=== PATIENT | female | born 1960 | race Caucasian/White ===

== ENCOUNTER 2024-10-10 19:16 | Inpatient (IN) | payer OTHER, SELFPAY ==
[2024-10-10] VITALS (20 sets, daily range): BP systolic 60–115; BP diastolic 40–75
[2024-10-10] MEDS: LR 1000 IV ×3 (16:40→21:56)
[2024-10-10 16:59] LABS: % Basophils 0.3 % (0-2); % Eosinophils 0.5 % (0-6); % Immature Granulocytes 0.2 % (0-0.5); % Lymphocytes 9.8 % (20.5-51.1); % Monocytes 4.2 % (1.7-9.3); Absolute Lymphocytes 0.6 10^3/uL (1.2-3.4); Absolute Monocytes 0.3 10^3/uL (0.1-0.6); Hematocrit 21.9 % (37.0-47.0); Mean Corpuscular Hgb 30.7 pg (27.0-31.0); Mean Corpuscular Volume 96.1 fL (81.0-99.0); Mean Platelet Volume 10.3 fL (7.4-10.4); Nucleated Red Blood Cells % 0 %; Platelet Count 165 10^3/uL (130-400); Red Blood Cell Count 2.28 10^6/uL (4.20-5.40); White Blood Cell Count 5.9 10^3/uL (4.8-10.8)
[2024-10-10 17:16] LABS: INR 1.08; PT 14.3 Sec (11.4-14.6)
[2024-10-10 17:17] LABS: APTT 25.1 Sec (23.4-35.0)
[2024-10-10 17:28] LABS: ALT (SGPT) 75 U/L (0-35); AST (SGOT) 60 U/L (14-36); Albumin 4.3 g/dl (3.5-5.0); Alkaline Phosphatase 62 U/L (38-126); Blood Urea Nitrogen 36 mg/dl (7-17); Calcium 9.3 mg/dl (8.4-10.2); Carbon Dioxide 13 mmol/L (22-30); Chloride 113 mmol/L (98-107); Estimated Creatinine Clearance 28 ml/min; Glucose 92 mg/dl (70-99); Potassium 3.5 mmol/L (3.5-5.1); Sodium 140 mmol/L (135-145); Total Bilirubin 0.4 mg/dl (0.2-1.3); Total Protein 6.5 g/dl (6.3-8.2); eGFR 42.27
--- NOTE | 2024-10-10 17:36 | ED.GENMED ---
History of Present Illness
General
Chief Complaint: Abnormal Lab Value
Time Seen by Provider: 10/10/24 15:45
History of Present Illness
History of Present Illness:
63-year-old female presents emergency ferment due to shortness of breath dizziness, recent hemoglobin 6.2. Patient is also diarrhea for the past 3 days.
Past History
Past History
ED Past Medical History: Arrthythmia (SVT, paroxysmal atrial fibrillation), CAD, CHF (Diastolic heart failure), COPD, GERD, HTN, Hypercholesterolemia, NC (August 2010), Other and Other (Still's disease/scleroderma, Pancreatitis, Esophageal
Ulcerations)
ED Past Surgical History: Cardiac (PTCA with stent times 08/2010) and Other
Social History
Tobacco: Former smoker
Alcohol: Occasional
Drug: None
Personal: Other (Seperated)
Living: with roommate
Employment: Employed
Family History
Family History: Hypertension
Phy Exam
Physical Exam
Physical Exam:
Physical Exam
General: Hypotensive, pale l
Neck: supple. no meningeal signs. normal posterior pharynx
Heart: s1/s2 regular rate and rhythm, no murmur. equal radial
pulses.
HEENT: Pupils equal round reactive to light, EOMI
Lungs: no acute respiratory distress. clear bilaterally
, Guaiac positive brown stool
Abdomen: normal bowel sounds. not tender. no CVAT
Neuro: alert and oriented. no focal neurological deficits cranial nerves II through XII intact
Skin: no rash
Psychiatric: well kept. interactive and cooperative
Extremities: no edema. no calf tenderness. negative homans. good distal pulses
Course
Orders/Labs/Results
Orders:
Orders
10/10/24 15:54
Cardiac Monitoring- Treatment ONCE
IV Insert/Care/Rem.- Treatment PRN
10/10/24 16:21
Lactated Ringers [Lr] 1,000 ml IV BOLUS
10/10/24 16:43
Complete Blood Count/With Diff Urgent
Comprehensive Metabolic Panel Urgent
PTT Urgent
Prothrombin Time Urgent
10/10/24 17:21
Type+Screen Urgent
BBK Wristband Number:
10/10/24 17:35
Blood Bank Products [* Blood Bank Products] Urgent
Blood Bank Products: *Packed RBC Leuko(PRBC's)
Quantity: 1
Transfuse Today: Yes
Reason: Anemia
Pantoprazole [Protonix IV] 80 mg IV NOW STA
Abnormal Lab Results
10/10/24
16:43
RBC 2.28 L 10^6/uL
(4.20-5.40)
Hgb 7.0 L g/dL
(12.0-16.0)
Hct 21.9 L %
(37.0-47.0)
MCHC 32.0 L g/dL
(33.0-37.0)
RDW 15.0 H %
(11.5-14.5)
Absolute Lymphs (auto) 0.6 L 10^3/uL
(1.2-3.4)
Neutrophils % 85.0 H %
(42.2-75.2)
Lymphocytes % 9.8 L %
(20.5-51.1)
Chloride 113 H mmol/L
(98-107)
Carbon Dioxide 13 L* mmol/L
(22-30)
BUN 36 H mg/dl
(7-17)
Creatinine 1.4 H mg/dL
(0.6-1.0)
AST 60 H U/L
(14-36)
ALT 75 H U/L
(0-35)
10/10/24 16:43
10/10/24 16:43
Vital Signs
Initial and Last Documented VS:
Initial Vital Signs
Temp Pulse Resp BP Pulse Ox
97.4 F 86 22 86/67 90
10/10/24 15:36 10/10/24 15:36 10/10/24 15:36 10/10/24 15:36 10/10/24 15:36
Last Documented Vital Signs
Temp Pulse Resp BP Pulse Ox
97.4 F 75 15 91/75 94
10/10/24 15:36 10/10/24 17:30 10/10/24 17:30 10/10/24 17:30 10/10/24 15:36
MDM/Problems Addressed
Differential Diagnosis Includes:
GI bleed, metabolic acidosis, anemia
MDM/Problems Addressed:
64-year-old female with guaiac positive dark stool, but on iron. Hemoglobin 7.0, hypotension. IV fluids given. Metabolic acidosis of unclear etiology. Protonix ordered, 1 unit packed red blood cells ordered.
Chronic conditions affecting care: COPD
Acute Exacerbation and/or Progression of Chronic Illness: COPD
*Pulse Oximetry
Patient hypoxic: no
*Nursery Rn Interpretation
Rate: normal
Interpretation: normal
Heart Rate: 75
Rhythm: sinus
*Critical Care Note
Total Time (30-74mins, 75-104mins- exclusive of procedures): 35
comment:
Critical care statement: A total of 35 minutes of critical care time was provided for this patient. This includes management of unstable vital signs, evaluation of the patient at bedside, reviewing the patient's pertinent medical records, discussion
with consultants, review of old EKGs and review of pertinent medical records. This time with separate from time utilized to perform the aforementioned documented procedures
Data Reviewed
Review of Other/Old Records Reveals: Labs
Source: records (Recent hemoglobin 6.2)
Patient Management
Social determinants of health affecting care: Living situation and Strong social support
Discussion with other providers: Hospitalist
Escalation/DeEscalation of care consider admission/obs:
Admission indicated
ED Attending Note
-
Portions of this chart may have been created with voice recognition software.� Occasional wrong word or��sound alike� substitutions may have occurred due to the inherent limitations of voice recognition software.
Discharge Plan
Departure
Patient Disposition: Admit
Date of Disposition: 10/10/24
Time of Disposition: 17:38
Admit to: IMU
Presentation/result/management discussed w/ accepting MD/DO: Hospitalist
Patient with high blood pressure during this ER visit?: No
Condition: Fair
Discharge Problem:
Anemia, Metabolic acidosis, Acute renal failure (ARF)
Prescriptions:
No Action
albuterol sulfate 1 PUFF HFA aerosol inhaler
1 puff inhalation PRN PRN (Reason: SOB)
Patient Comments:
PT ran out of medication
clonazepam 0.5 MG tablet
1 mg PO BID
mirtazapine 15 MG tablet
45 mg PO HS
diphenhydramine HCl 25 MG strip
50 mg PO PRN PRN (Reason: allergies)
losartan 50 MG tablet
50 mg PO DAILY
mycophenolate mofetil 500 MG tablet
1,000 mg PO BID
amlodipine 10 MG tablet
50 mg PO DAILY
ferrous sulfate [iron] 325 MG tablet
325 mg PO BID
hydrochlorothiazide 12.5 MG capsule
12.5 mg PO DAILY
zolpidem 5 MG tablet
5 mg PO HS
buspirone [BuSpar] 15 MG tablet
10 mg PO BID
budesonide-formoterol [Symbicort] 1 PUFF HFA aerosol inhaler
2 puff inhalation R BID
atorvastatin 10 MG tablet
10 mg PO DAILY
aspirin [Aspir-Low] 81 MG tablet,delayed release (DR/EC)
81 mg PO DAILY
dicyclomine 10 MG capsule
10 mg PO QIDPRN PRN (Reason: abdominal pain/spasm) Qty: 20 0RF
Referrals:
NONE,* [Family Provider] -
Interventions
Interventions:
*Risk Screen - Suicide Last Done: 10/10/24 15:36
*General Assessment Last Done: 10/10/24 15:36
*Neglect/Abuse Screening Last Done: 10/10/24 15:36
*ED- Fall Risk Assessment Last Done: 10/10/24 15:36
*ED COVID-19 Vaccine History Last Done: 10/10/24 15:36
Discharge Date and Time
Print Language: LAO
--- NOTE | 2024-10-10 18:17 | HPS.HSE ---
Addendum entered and electronically signed by Pelon Long MD 10/10/24 20:35:
I saw and examined the patient.
The MUSEUM ATTENDANT or PA's note was reviewed and I agree with the note.
Comment:
see my updated note
Original Note:
Family Physician
-
Family Physician: * NONE
Chief Complaint
-
Lightheadedness, shortness of breath, diarrhea x 3 days, fatigue x 2 months
History of Present Illness
64-year-old female complaining of shortness of breath, dizziness and diarrhea over the past 3 days and fatigue x 2 months. She reports watery black diarrhea for the past 3 days multiple times a day for which she has been taking Imodium for daily.
She recently finished Bactrim DS 2 weeks ago for a urinary tract infection. She denies history of C. difficile she reports a sacral ulcer for the past 3 weeks to her buttocks that is painful. She reports prior to 2 months ago she was going to the
gym daily and lifting weights. She states she has had anemia dating back to her 40s for which she had a blood transfusion but never had a hematological evaluation. She scheduled her first ANTONIO valve on 10/12/[address] Gary. She has
been taking oral iron once a day and B12 on her own. She had recent hemoglobin she was told of 6.2. In the ER she had guaiac positive dark stool on ER exam with a hemoglobin of 7 and was hypotensive as low as 62 over 50s. She received 2 L bolus
of lactated Ringer's while waiting for 1 unit of PRBCs to be transfused. She is on oral aspirin 81 mg daily. Her blood pressure is still hypotensive but improving to
91/75.
She has past medical history of COPD/former smoker, sinus tachycardia 2010,Sinus tachycardia 2010 ,Chronic RBBB, bifascicular block CAD/UT status post PTCA with stent August 2010- PTCA of the small third diagonal and small very apical LAD., chronic
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
Medical History
Past Medical History
Past Medical History: Reports Other
Additional Past Medical History:
COPD/former smoker
Sinus tachycardia 2010
Chronic RBBB, bifascicular block
CAD/UT status post PTCA with stent August 2010- PTCA of the small third diagonal and small very apical LAD.
chronic diastolic heart failure/Takotsubo cardiomyopathy August 2010
GERD/esophageal ulcerations
HTN
HLD
stills disease/scleroderma on CellCept
pancreatitis
chronic anemia baseline 10 since age 40s history of 1 blood transfusion
diverticulosis on colonoscopy 2018, hemorrhoids
cachexia
Past Surgical History: Reports Other
Additional Past Surgical History:
PTCA with stent August 2010- PTCA of the small third diagonal and small very apical LAD.
Colonoscopy 2018
Social History
Tobacco: Former Smoker (45 years 1/4 pack a day stopped August 2016)
Alcohol: None
Drug: None
Family History
Family History: Not pertinent
Allergies / Home Medications
Allergies reflects when Allergies were last updated in [facility].
Home Medications with original date entered in [facility]
Allergy/Medication List:
Allergies
Allergy/AdvReac Type Severity Reaction Status Date / Time
WYATT Inhibitors Allergy cough Verified 10/10/24 15:35
[Wyatt Inhibitors]
hydroxyzine HCl [From Atarax] Allergy hallucinati Verified 10/10/24 15:35
ons
levofloxacin [From Levaquin] Allergy Itching Verified 10/10/24 15:35
lisinopril Allergy cough Verified 10/10/24 15:35
fresh pineapples,cherries & Allergy itchy Uncoded 10/10/24 15:35
peaches mouth &
throat and
swelling
monitor leads Allergy contact Uncoded 10/10/24 15:35
dermatitis
Home Medications
amlodipine 10 mg tablet 10 mg PO DAILY 09/24/14
ferrous sulfate 325 mg (65 mg iron) tablet (iron) 325 mg PO DAILY 09/24/14
hydrochlorothiazide 12.5 mg capsule 12.5 mg PO DAILY 09/24/14
losartan 50 mg tablet 50 mg PO DAILY 09/24/14
mycophenolate mofetil 500 mg tablet 1,000 mg PO BID 09/24/14
zolpidem 5 mg tablet 5 mg PO HS 09/24/14
atorvastatin 10 mg tablet 10 mg PO QPM 08/07/17
ascorbic acid (vitamin C) 500 mg tablet (Vitamin C) 500 mg PO DAILY 10/10/24
aspirin 81 mg tablet,delayed release 81 mg PO DAILY 10/10/24
bismuth subsalicylate 262 mg/15 mL oral suspension (Pepto-Bismol) 262 mg PO DAILYPRN PRN diarrhea 10/10/24
buspirone 15 mg tablet 15 mg PO BID 10/10/24
cholecalciferol (vitamin D3) 25 mcg (1,000 unit) tablet (Vitamin D3) 25 mcg PO DAILY 10/10/24
clonazepam 1 mg tablet 1 mg PO BID 10/10/24
cyanocobalamin (vitamin B-12) 1,000 mcg tablet 1,000 mcg PO DAILY 10/10/24
estradiol 0.01% (0.1 mg/gram) vaginal cream (Estrace) 1 appful vaginal TUFR 10/10/24
fluticasone furoate 100 mcg-vilanterol 25 mcg/dose inhalation powder (Breo Ellipta) 1 inh inhalation R DAILY 10/10/24
loperamide 2 mg tablet 2 mg PO BIDPRN PRN diarrhea 10/10/24
mirtazapine 30 mg tablet 30 mg PO HS 10/10/24
omeprazole 20 mg tablet,delayed release 20 mg PO DAILY 10/10/24
Review of Systems
-
History Source: Patient
A 12 point ROS was completed and negative except as noted: Yes
Constitutional: Reports Fatigue; Denies Fever or Chills
EENT: Denies Sore Throat or Runny Nose
Respiratory: Reports Trouble Breathing; Denies Cough
Cardiac: Denies Chest Pain, Diaphoresis, Palpitations or Syncope
Abdomen/GI: Reports Diarrhea (Watery dark brown x 3 days); Denies Abdominal Pain, Nausea, Vomiting or Constipated
: Denies Dysuria, Frequency, Flank Pain, Incontinence or Difficulty Voiding
Musculoskeletal: Denies Joint Pain or Edema
Skin: Denies Itching or Rash
Neurological: Reports Dizzy and Weakness (Generalized); Denies Headache
Endocrine: Reports No Symptoms
Hematologic/Lymphatic: Reports No Symptoms
Psych: Reports Calm
Physical Exam
Vital Signs
Vital Signs
Temp Pulse Resp BP Pulse Ox
97.4 F 75 15 91/75 94
10/10/24 15:36 10/10/24 17:30 10/10/24 17:30 10/10/24 17:30 10/10/24 15:36
Physical Exam
General: Conversant, Chills and Cachectic; No Pain or Fever
HEENT: NormoCephalic, Anicteric, PERRLA, No Ptosis and Other (Dry oral mucosa)
Respiratory: Clear; No Wheezes, Rales or Rhonchi
Cardiac: S1/S2 and Regular Rhythm; No Murmur, Rub, Gallop or Peripheral Edema
Breast: Deferred by me
GI: Soft, Non Distended, Normal Bowel Sounds and No Hepatosplenomegaly
Rectal: Hem Positive (Dark brown per ER provider)
Musculoskeletal: No Clubbing, No Cyanosis and No Edema
Skin: Warm, Dry and Decubitus Ulcers (Stage II sacral decub dime size); No Rash
Neuro: AO x 3 (But poor historian), No Motor Deficits, Nonfocal/grossly intact, Cranial Nerves Intact and No Sensory Deficits; No Slurred Speech, Facial Droop, Tremors or Sedated
Psych: Calm (Gets anxious very easily)
Laboratory Results
-
10/10/24 16:43
10/10/24 16:43
Laboratory Results
PT 14.3 Sec (11.4-14.6) 10/10/24 16:43
INR 1.08 10/10/24 16:43
APTT 25.1 Sec (23.4-35.0) 10/10/24 16:43
Total Bilirubin 0.4 mg/dl (0.2-1.3) 10/10/24 16:43
AST 60 U/L (14-36) H 10/10/24 16:43
ALT 75 U/L (0-35) H 10/10/24 16:43
Alkaline Phosphatase 62 U/L (38-126) 10/10/24 16:43
Data Reviewed
-
Lab Data: Labs Reviewed by me
Impression/Plan
-
Impression/plan:
Admit to IMU
#Hypotensive shock due to blood loss anemia/hypovolemia #Immunocompromised patient history scleroderma on CellCept
#Hx HTN�benign
BP 62/50, 2 L IV LR BP 91/75
- Continue IV LR 80 cc an hour 1 L
- Patient receiving 1 unit PRBC
- Follow blood pressure
- Hold amlodipine 10 mg daily, HCTZ 12.5 mg daily, losartan 50 mg daily
- Hold CellCept
- Check 2D echo
- Consult cushion sewer
2D echo 05/22/2016: EF 55-60%, normal LVS LVSF, trace MR
#Scleroderma, stills disease
#History of mild narrowing esophagus due to stricture from scleroderma on barium swallow 01/05/
-Hold CellCept 1000 mg twice daily due to GI bleed, BROOKE
#Symptomatic blood loss anemia concern for GI bleed
#Chronic anemia�normocytic baseline 10
#Hx GERD/esophageal ulcerations
Hgb 7
Black stool guaiac positive in the ER per provider
Type and screen, blood consent obtained by ER
-Transfuse 1 unit PRBC
-Check iron, TIBC, ferritin, folate, B12
- Hold aspirin
-Continue vitamin B12 1000 mcg p.o. daily patient is to be taking ferrous sulfate 325 mg daily
- IV Protonix 80 mg given in ER
- Continue IV Protonix 40 mg daily
-Clear liquid diet
-H&H Q6
- Consult GI-Dr. Ventura aware
Colonoscopy 08/12/2018: Diverticulosis large intestine/sigmoid, hemorrhoidal skin tags
#Metabolic acidosis due to diarrheal losses
Diarrhea x 3 days
Serum carbon dioxide 13
-IV LR 2 L given in ER, continue IV LR 60 cc an hour
-Follow CMP
#BROOEK secondary to diarrheal losses/Bactrim/ blood loss anemia/GI bleed/hypotension
Creat 1.4/CrCl 28 prior baseline 0.9 on 10/02/2021
-Completed course of Bactrim 2 weeks ago for UTI
2 L LR given in ER
- Follow BMP check mag, Phos
- Check urinalysis with reflex culture
- Hold losartan 50 mg daily, HCTZ 12.5 mg daily
#Recent UTI 2 weeks ago finished Bactrim DS now with diarrhea watery-no current urinary symptoms
Watery diarrhea black x 3 days patient has been taking Imodium daily since then
-Check stool cultures, C. difficile
- Add probiotic
#Stage II sacral ulcer
- Consult wound care
#Chronic diastolic heart failure
I/O, daily weights
Patient did receive 2 L IV NSS in ER will give 1 additional liter IV NSS 60 cc an hour
- Hold HCTZ 12.5 mg daily
-Follows with [facility]
- Check 2D echo
#CAD/UT status post PTCA with stent August 2010
#Takotsubo cardiomyopathy
#Status post : Successful PTCA of the small third diagonal and small very apical LAD.
-Hold aspirin, beta-farhat, statin
#COPD-no acute exacerbation
#Former smoker
- Continue Breo Ellipta 1 inhalation daily
#Sinus tachycardia history 2010
#Chronic RBBB, bifascicular block
- HR stable at 75 bpm
- Hold aspirin 81 mg daily
- Check EKG
# HLD
Hold atorvastatin 10 mg every afternoon
#Anxiety/depression
-Continue BuSpar 15 mg p.o. twice daily,
-Continue clonazepam 1 mg p.o. twice daily hold for sedation
- Continue Remeron 30 mg at bedtime
#Insomnia
-Continue Ambien 5 mg at bedtime
#Severe protein malnutrition/cachexia BMI 16.7
- Consult dietary
Other PMH:
Pancreatitis hx
DVT prophylaxis
SCDs
Full code
--- NOTE | 2024-10-10 18:42 | W.PN.UPDATE ---
Update Note
Progress Note Update
This note serves as an addendum to the H&P by book agent AJITH Orly FERGUSON
HPI
64F Cachectic, retired REFRIGERATION MECHANIC HELPER, lives at home poor historian with scleroderma , esophageal ulcer, GERD , HX SVT, paroxysmal AF, NOT ON OAC, CAD with PTCA and stent on baby ASA [place], Diastolic CHF, HX Takotsubo CM 2010, COPD, GERD, HTN,
Hypercholesterolemia, Still's disease, Pancreatitis seen at ER:
- report Salgado and Dizziness
- reports black watery painless non mucous diarrhea for last 3 days and taking Imodium
- denied prior HX C Diff
- Recently completed PO Bactrim 2 weeks ago for UTI
- reports stage II Sacra pressure sore for last 3 weeks due less ambulation
OP abnormal labs: Hgb 6.2; Baseline Hgb 9-10 , HX chronic anemia
At ER:
Severely hypotensive
Vital Signs
Temp Pulse Resp BP Pulse Ox
97.4 F 75 15 91/75 94
10/10/24 15:36 10/10/24 17:30 10/10/24 17:30 10/10/24 17:30 10/10/24 15:36
10/10/24
16:15 10/10/24
16:17 10/10/24
17:15
Blood pressure 60/40 62/52 87/69
02/20/11
07:42 02/20/11
07:45 02/20/11
07:45
Temp 97.6 F
Pulse 104
Resp Rate 16
Blood pressure 144/99
SaO2 100
PE
Gen: Cachectic, not toxic , interactive but intense
HEENT: very dry OM
Neck: supple
Lungs: CTA
Cor: RRR S1 s2
Abdomen: soft benign
RENTAL CLERK: AAO3
MS: no edema, dry skin
Psych:alert, anxious, questionable insight
Labs
10/02/21 10/02/21 10/10/24
12:12 12:23 16:43
WBC 11.5 H 5.9
Hgb 10.9 L 7.0 L
MCV 87.0 96.1
Sodium 131 L 140
Chloride 103 113 H
Carbon Dioxide 16 L 13 L*
BUN 25 H 36 H
Creatinine 0.9 1.4 H
Estimated Creat Clear 28
Glomerular Filtr Rate > 60.0 42
eGFR 42.27
Glucose 98 92
AST 60 H
ALT 75 H
05/22/16 TTE
Normal left ventricular size, wall thickness and systolic function.
Estimated ejection fraction is 55-60%.
Thickened mitral valve leaflets.
Mitral annular calcification.
Trace mitral regurgitation.
Aortic sclerosis without stenosis.
Normal pericardium and pleura without evidence of effusion.
Compared to previous echo the LV function is normal and there is no pericardial effusion currently.
ASSESSMENT & PLAN
Acute dark watery painless non mucous diarrhea with severe hypovolemia +/_ evolving hypovolemic shock
DDX: ABX associated diarrhea, C Diff dirrhea , bacterial overgrowth, micophenolate toxicity
- Stool for Cx, Stool for C Diff
- Hold all anti HTN agents ( HCTZ, Amlodipine, Losartan)
- cont. LR IVF @ 80H
- Hold Imodium till stool bacteria Cx and stool C Diff has ruled out
- Probiotics
- Check Mycophenolate level and hold it for now
- GI consult
POS Guaiac positive dark brown stool
Associated severe anemia - acute vs subacute
Underlying ACDz of multifactorial origins ( Nutritional, malabsorption syndrome )
HX esophageal ulceration
HX GERD on OP PO PPI
- Blood consented and scanned
- agree with 1 unit of PRBC
- Clear diet for now
- IV PPI daily
- FU post transfusion Hgb and trend Hgb q6H
- check Ferritin, B12 and folate
- await GI evaluation
BROOKE suspect pre renal origin due to volume depletion
- f/u Cr in response to hemoresuscitation and fluid resuscitation
HX [place], PTCA and stented CAR on baby ASA
Hypercholesterolemia
- hold ASA for now
- stop Atorvastatin for due to severe protein calorie malnutrition
HX SVT, paroxysmal AF
- NOT ON OAC
HX Scleroderma on mycophenolate
Associated Still's disease
- Check Mycophenolate level and hold it for now
Cachectic and under weight BMI 16s
Severe protein calorie malnutrition seems multifactorial origins
Diff: Eating disorders, malabsorption syndrome, chr pancreatitis ?
New stage II sacral pressure ulcer
- Grocery Sacker consult
- Wound care consult
HX Depression and Anxiety
- denied HX Eating disorder
- c/w Buspirone
- c/w SOCIAL RESEARCH ASSISTANT Clonazepam
HX Diastolic CHF on
HX Takotsubo CM 2010
HX COPD
DVT Px: SCD
Full code
IMU
[2024-10-10 19:25] LABS: Iron 99 ug/dl (37-170); Magnesium 1.5 mg/dl (1.6-2.3); Percent Saturation 55 % (20-50); Phosphorus 3.3 mg/dl (2.5-4.5); Total Iron Binding Capacity 180 ug/dl (265-497)
[2024-10-10] MEDS: PROTONIX IV 80 MG IV (19:38)
[2024-10-10 20:38] LABS: Folate 14.8 ng/ml (2.76-20); Vitamin B12 997 pg/ml (239-931)
--- NOTE | 2024-10-10 21:00 | PTCARENOTE ---
Received pt from the Ed via stretcher, ED transportation engineer, pt transferred self from stretcher to hospital bed independently. AAOx3, no complaints of pain, bed alarm in place for reports that pt is impulsive. Tolerating RA, lungs clear, SpO2 96%. BP
stable s/p 2L IVF in the ED, PRBC currently infusing via RUE midline. +bowel sounds, pt states hx of dark colored diarrhea x3 days. Remainder of assessment as documented. Oriented to new room/unit and call meier. Pt instructed not to get OOB without
assistance, emphasized fall risk and risk of vasovagal episode given recent hypotension. Pt expressed verbal understanding. Resting comfortably in bed at this time, call meier within reach.
[2024-10-10] MEDS: KLONOPIN 1 MG PO (21:57)
[2024-10-10] MEDS: BUSPAR 15 MG PO (21:57)
[2024-10-10] MEDS: AMBIEN 5 MG PO (21:57)
[2024-10-10 23:13] LABS: Hematocrit 23.8 % (37.0-47.0); Hemoglobin 7.8 g/dL (12.0-16.0)
[2024-10-11] VITALS (24 sets, daily range): BP systolic 73–115; BP diastolic 50–80; BMI 17.9
[2024-10-11 05:35] LABS: % Basophils 0.6 % (0-2); % Eosinophils 2.6 % (0-6); % Immature Granulocytes 0.3 % (0-0.5); % Lymphocytes 22.6 % (20.5-51.1); % Monocytes 9.2 % (1.7-9.3); % Neutrophils 64.7 % (42.2-75.2); Absolute Eosinophils 0.1 10^3/uL (0-0.7); Absolute Lymphocytes 0.8 10^3/uL (1.2-3.4); Absolute Monocytes 0.3 10^3/uL (0.1-0.6); Absolute Neutrophils 2.3 10^3/uL (1.4-6.5); Hematocrit 22.1 % (37.0-47.0); Hemoglobin 7.3 g/dL (12.0-16.0); Mean Corpuscular Hgb 30.7 pg (27.0-31.0); Mean Corpuscular Volume 92.9 fL (81.0-99.0); Mean Platelet Volume 9.8 fL (7.4-10.4); Nucleated Red Blood Cells % 0 %; Platelet Count 119 10^3/uL (130-400); Red Blood Cell Count 2.38 10^6/uL (4.20-5.40); Red Cell Dist. Width 17.1 % (11.5-14.5); White Blood Cell Count 3.5 10^3/uL (4.8-10.8)
[2024-10-11 06:14] LABS: ALT (SGPT) 49 U/L (0-35); AST (SGOT) 32 U/L (14-36); Albumin 3.2 g/dl (3.5-5.0); Alkaline Phosphatase 49 U/L (38-126); Blood Urea Nitrogen 24 mg/dl (7-17); Calcium 8.9 mg/dl (8.4-10.2); Carbon Dioxide 20 mmol/L (22-30); Chloride 115 mmol/L (98-107); Estimated Creatinine Clearance 39 ml/min; Glucose 83 mg/dl (70-99); Sodium 142 mmol/L (135-145); Total Bilirubin 0.8 mg/dl (0.2-1.3); Total Protein 5.2 g/dl (6.3-8.2); eGFR > 60.00
--- NOTE | 2024-10-11 06:57 | W.PN.HOSP.TC ---
Today's Communication/Plan
-
monitor H&H, transfuse prn Hgb<7.5
clear liquid diet, IVF support (stop IVF if shortness of breath or need for oxygen supplementation develops)
daily weigth I/O
midodrine 2.5 mg TID
levophed prn MAP<65
follow stool studies
Assessment / Plan
Assessment / Plan
Physical Exam
General: no acute distress, appears comfortable at this time. Appears cachectic
HEENT: NormoCephalic, Anicteric, PERRLA, No Ptosis
Respiratory: Clear to auscultation b/l; No Wheezes, Rales or Rhonchi
Cardiac: S1/S2 and Regular Rhythm; No Murmur, Rub, Gallop or Peripheral Edema
GI: Soft, Non Distended, Normal Bowel Sounds and No Hepatosplenomegaly
Musculoskeletal: No Clubbing, No Cyanosis and No Edema
Neuro: AOx3 conversant coherent
Psych: Calm
64F HTN HLD COPD former smoker CAD stent stills dz/scleroderma on cellcept here for evaluation anemia possible GIB hx watery dark diarrhea.
#Hypotensive shock due to blood loss anemia/hypovolemia
#Immunocompromised patient history scleroderma/stills dz on CellCept
#Hx HTN�benign
#Symptomatic blood loss anemia concern for GI bleed
#Chronic anemia
#Hx GERD/esophageal ulcerations
BP improved with IVF/blood transfusion
Continue IV LR 80 cc an hour
Hold home antihypertensives amlodipine 10 mg daily, HCTZ 12.5 mg daily, losartan 50 mg daily
cont home CellCept
Check 2D echo
Midodrine 2.5 mg TID w/ holding parameters SBP>120
Levophed prn MAP<65, has not required yet
Black stool guaiac positive noted in ED
received 1PRBC hgb 7.0 with relatively good response noted 7.8
transfusion repeated 10/11/24, transfuse for goal Hgb>7.5 given concern active GI bleed
iron studies appreciated anemia of chronic disease
B12 Folate noted non-deficient
Hold aspirin for now
Continue home vitamin B12 1000 mcg p.o. daily ferrous sulfate 325 mg daily
Continue IV Protonix 40 mg daily
Clear liquid diet
GI consult appreciated, follow stool studies
#Metabolic acidosis due to diarrheal losses
significantly improved with IVF
monitor
#BROOKE secondary to diarrheal losses/Bactrim/ blood loss anemia/GI bleed/hypotension
Initial Cr 1.4 improved to 1.0
cont to monitor
#Recent UTI 2 weeks ago finished Bactrim DS now with diarrhea watery-no current urinary symptoms
Watery diarrhea black x 3 days patient has been taking Imodium daily since then
-Check stool cultures, C. difficile
-probiotic
#Stage II sacral ulcer
- Consult wound care
#Chronic diastolic heart failure
I/O, daily weights
no significant signs fluid overload noted at this time.
stable respiratory status on room air
Follows with [facility]
Check 2D echo
#CAD/LA status post PTCA with stent August 2010
#Takotsubo cardiomyopathy
#Status post : Successful PTCA of the small third diagonal and small very apical LAD.
#HLD
Hold aspirin for now,
statin on hold d/t underweight/cachexia, check lipid panel in AM
#COPD-no acute exacerbation
#Former smoker
- Home Breo Ellipta substituted with Symbicort while in hospital
-stable respiratory status on room air
#Anxiety/depression
-Continue BuSpar 15 mg p.o. twice daily,
-Continue clonazepam 1 mg p.o. twice daily hold for sedation
- Continue Remeron 30 mg at bedtime
#Insomnia
-Continue Ambien 5 mg at bedtime
#Severe protein malnutrition/cachexia BMI 16.7
- Consult dietary
Other PMH:
Pancreatitis hx
DVT prophylaxis
SCDs
Full code
I spent a total of 55 minutes with the patient or on the floor. More than 50% of this time involved counseling and coordination of care.
Anticipated Discharge: 24 - 48 hours
Subjective/Interval History
-
Date of Service: October 11, 2024
Seen and examined at bedside in no acute distress resting comfortably in bed. AOx3 conversant coherent. BP noted to be low, patient asymptomatic however, denies lightheadedness. No bowel movements since admission. Denies pain.
Objective Data
-
Labs:
Laboratory Results
10/10/24 10/11/24 10/11/24
23:06 05:21 11:00
WBC 3.5 L
Hgb 7.8 L 7.3 L Pending
Hct 23.8 L 22.1 L Pending
Plt Count 119 L D
Sodium 142
Potassium 3.0 L
Chloride 115 H
Carbon Dioxide 20 L
BUN 24 H
Creatinine 1.0
Glucose 83
Calcium 8.9
Total Bilirubin 0.8
AST 32
ALT 49 H
Alkaline Phosphatase 49
10/11/24
17:00
WBC
Hgb Pending
Hct Pending
Plt Count
Sodium
Potassium
Chloride
Carbon Dioxide
BUN
Creatinine
Glucose
Calcium
Total Bilirubin
AST
ALT
Alkaline Phosphatase
Vital Signs:
Vital Signs
Temp Pulse Resp BP Pulse Ox
97.0 F 60 18 95/62 98
10/11/24 05:01 10/11/24 05:15 10/11/24 05:15 10/11/24 04:00 10/11/24 05:15
I&O
10/09/24 10/10/24 10/11/24
06:59 06:59 06:59
Intake Total 500 / 500
Balance 500 / 500
[2024-10-11] MEDS: SYMBICORT 80/4.5 MCG INHALER 2 PUFF INH ×2 (07:52→19:32)
[2024-10-11] MEDS: KCL 270 MEQ IV (08:24)
[2024-10-11] MEDS: VISBIOME 2 CAP PO (08:30)
[2024-10-11] MEDS: BUSPAR 15 MG PO ×2 (08:31→20:48)
[2024-10-11] MEDS: CELLCEPT 1000 MG PO ×2 (08:31→20:47)
[2024-10-11] MEDS: KLONOPIN 1 MG PO ×2 (08:32→20:48)
[2024-10-11] MEDS: VITAMIN B-12 1000 MCG PO (08:33)
[2024-10-11] MEDS: FEOSOL 325 MG PO (08:33)
[2024-10-11] MEDS: PROTONIX IV 40 MG IV (08:34)
[2024-10-11] MEDS: KLOR-CON 20 MEQ PO ×2 (08:34→20:48)
--- NOTE | 2024-10-11 10:15 | CM ---
Met with patient at bedside; initial assessment completed
Pharmacy verified, added to chart: [address] [facility], [place]
Family Physcian vermagda, Admissions notified to add to chart: Rory Black; [facility] @ [address] [place] [address]; [address]; [place] [address];
Patient lives alone; one floor apartment; 4 steps to enter; bath has tub w/ shower; railing on stairs
PLOF: reports she is independent with ambulation, stairs, and ADLs; Drives
NO SNF or Home Health utilization history
If home care is recommended, she is not agreeable
Transportation: plans to take an UBER
Plan: discharge to home when medically stable
--- NOTE | 2024-10-11 11:19 | CON.GI ---
Consultation
-
Date/Time Consultation Requested: 10/11/24
Date/Time Consultation Performed: 10/11/24
Requesting Provider:
Performing Provider:
Reason for Consultation: anemia, diarrhea
Medical History
Chief Complaint / HPI
Chief Complaint: anemia, dark stool
History of Present Illness:
64-year-old female with complicated medical history including h/o scleroderma/stills disease, CAD, CHF, anemia of chronic disease, COPD, presenting to the emergency room with complaints of shortness of breath ,dizziness for couple of months and,
ongoing diarrhea for 3 months but more so in the last 3 days. As per patient, she was having multiple UTIs last summer, treated with antibiotics but eventually went to urology and was placed on estradiol cream and her UTIs did resolve. She then
started on aloe vera a couple of months ago and reports that since then her diet has been worse. She would have multiple loose stool every day, was taking Imodium at least 1-4 a day and Pepto-Bismol up to 4 times a day . she had a recent UTI, took
Bactrim about 2 weeks ago. and in the last 3 days has had multiple episodes of diarrhea . She denies any blood in the stool or black stool but with Pepto-Bismol, stool is dark. Denies any abdominal pain, nausea or vomiting. She has history of
acid reflux, takes omeprazole 20 mg daily with good control of symptoms. She did lose 8 pounds since this diarrhea started. Prior to this her bowel movement pattern was 1 bowel movement a day which is more formed and sometimes she will have
episodes of loose stool but nothing like this.
Reviewing labs, hemoglobin up until 2019 was in the range of 9-11, this time, hemoglobin was 7.0. Ferritin, iron saturation are high suggesting oral iron supplementation. B12 is in normal range. Folate is in normal range. She is on omeprazole 20
mg as outpatient. On admission, she was noted to be acidotic with elevated creatinine which seems to have improved with hydration. She was hypotensive on admission.
She was previously seen in GI office for anemia and also for diarrhea, she was followed in past by Dr. Lundberg and has seen Dr. Whitfield as well. 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
of jejunum in left mid abdomen. For her diarrhea she was given rifaximin empirically for SIBO (no breath testing was done). She did started it had an allergic reaction so stopped it. Her diarrhea did resolve. She went on to have colonoscopy with
aTmika in 07/2018.������� It appeared normal but biopsies showing crypt abscesses and some crypt distortion in the right colon.
She also was admitted in 2012 with some black stool, at that time was noted to have severe esophagitis. Previously tested for celiac disease and negative. ? History of C. difficile in the past.
�������
�������PRIOR GI WORKUP
�������Colonoscopy 07/2018 prep fair, sigomid tics, hemorrhoids, TI normal, normal appearing mucosa however random biopsies showed acute cryptitis, cyrpt abscesses and architerctural distortion of ascending colon. Descending colon biopsies were wnl.
Colonoscopy in 2010, examined ileum and colon were normal. Biopsies of terminal ileum and colon were all unremarkable.
�������EGD 2012 mildly severe reflux esophagitis, irregular Zline, biopsies negative for Garcia's. Erythema in cardia and antrum with biopsies negative for H. pylori, normal examined duodenum. EGD in 2011 showing nonbleeding esophageal ulcers and
in 2010 showing esophagitis as well.
Past Medical History
Past Medical History: CAD, CHF, COPD, GERD, HTN, Hypercholesterolemia and Other (History of stills disease/ scleroderma, history of pancreatitis, chronic anemia)
Past Surgical History: Appendectomy
Social History
Tobacco: Former Smoker
Alcohol: None
Family History
Family History: Other (Family history of Crohn's disease in mother.)
Allergies / Home Medications
Allergy/AdvReac Type Severity Reaction Status Date / Time
WYATT Inhibitors Allergy cough Verified 10/10/24 15:35
[Wyatt Inhibitors]
hydroxyzine HCl [From Atarax] Allergy hallucinati Verified 10/10/24 15:35
ons
levofloxacin [From Levaquin] Allergy Itching Verified 10/10/24 15:35
lisinopril Allergy cough Verified 10/10/24 15:35
fresh pineapples,cherries & Allergy itchy Uncoded 10/10/24 15:35
peaches mouth &
throat and
swelling
monitor leads Allergy contact Uncoded 10/10/24 15:35
dermatitis
�Medication �Instructions �Recorded
amlodipine 10 mg tablet 10 mg PO DAILY 09/24/14
ferrous sulfate 325 mg (65 mg 325 mg PO DAILY 09/24/14
iron) tablet (iron)
hydrochlorothiazide 12.5 mg capsule 12.5 mg PO DAILY 09/24/14
losartan 50 mg tablet 50 mg PO DAILY 09/24/14
mycophenolate mofetil 500 mg tablet 1,000 mg PO BID 09/24/14
zolpidem 5 mg tablet 5 mg PO HS 09/24/14
atorvastatin 10 mg tablet 10 mg PO QPM 08/07/17
ascorbic acid (vitamin C) 500 mg 500 mg PO DAILY 10/10/24
tablet (Vitamin C)
aspirin 81 mg tablet,delayed 81 mg PO DAILY 10/10/24
release
bismuth subsalicylate 262 mg/15 mL 262 mg PO DAILYPRN PRN diarrhea 10/10/24
oral suspension (Pepto-Bismol)
buspirone 15 mg tablet 15 mg PO BID 10/10/24
cholecalciferol (vitamin D3) 25 25 mcg PO DAILY 10/10/24
mcg (1,000 unit) tablet (Vitamin
D3)
clonazepam 1 mg tablet 1 mg PO BID 10/10/24
cyanocobalamin (vitamin B-12) 1,000 mcg PO DAILY 10/10/24
1,000 mcg tablet
estradiol 0.01% (0.1 mg/gram) 1 appful vaginal TUFR 10/10/24
vaginal cream (Estrace)
fluticasone furoate 100 1 inh inhalation R DAILY 10/10/24
mcg-vilanterol 25 mcg/dose
inhalation powder (Breo Ellipta)
loperamide 2 mg tablet 2 mg PO BIDPRN PRN diarrhea 10/10/24
mirtazapine 30 mg tablet 30 mg PO HS 10/10/24
omeprazole 20 mg tablet,delayed 20 mg PO DAILY 10/10/24
release
Review of Systems
-
All other systems: A 12 pt ROS was Negative except as stated above in HPI
Vital Signs
Temp Pulse Resp BP Pulse Ox
97.0 F 73 14 95/62 99
10/11/24 05:01 10/11/24 07:55 10/11/24 07:55 10/11/24 04:00 10/11/24 07:55
Physical Exam
Exam
Cardiac: S1/S2
GI: Soft, Non Tender, Non Distended and Normal Bowel Sounds
Neuro: AO x 3
Results
WBC 3.5 10^3/uL (4.8-10.8) L 10/11/24 05:21
Hgb Cancelled 10/11/24 11:00
Hct Cancelled 10/11/24 11:00
MCV 92.9 fL (81.0-99.0) 10/11/24 05:21
Plt Count 119 10^3/uL (130-400) L D 10/11/24 05:21
Absolute Neuts (auto) 2.3 10^3/uL (1.4-6.5) 10/11/24 05:21
PT 14.3 Sec (11.4-14.6) 10/10/24 16:43
INR 1.08 10/10/24 16:43
APTT 25.1 Sec (23.4-35.0) 10/10/24 16:43
Sodium 142 mmol/L (135-145) 10/11/24 05:21
Potassium 3.0 mmol/L (3.5-5.1) L 10/11/24 05:21
Chloride 115 mmol/L (98-107) H 10/11/24 05:21
Carbon Dioxide 20 mmol/L (22-30) L 10/11/24 05:21
BUN 24 mg/dl (7-17) H 10/11/24 05:21
Creatinine 1.0 mg/dL (0.6-1.0) 10/11/24 05:21
Calcium 8.9 mg/dl (8.4-10.2) 10/11/24 05:21
Total Bilirubin 0.8 mg/dl (0.2-1.3) 10/11/24 05:21
AST 32 U/L (14-36) 10/11/24 05:21
ALT 49 U/L (0-35) H 10/11/24 05:21
Alkaline Phosphatase 49 U/L (38-126) 10/11/24 05:21
Diagnostic Image Results:
Prior GI Procedures:
EGD:
Colonoscopy:
Assessment / Plan
-
64-year-old female with multiple medical problems including CAD, stills disease/scleroderma, CHF, COPD, chronic anemia with previous history of esophagitis, maintained on PPI and history of diarrhea with some right-sided colon inflammation on
colonoscopy in 2019 presenting with dizziness, diarrhea, noted to have anemia and GI consult called in.
- Diarrhea with associated hyponatremia, hypomagnesemia and metabolic acidosis
No previous history of C. 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 Family history of Crohn's in mother and patient's last colonoscopy in 2019 showing some crypt abscesses in
the right colon.
Will check stool for cultures, C. difficile, Cryptosporidium, Giardia, white cells, fecal fat, calprotectin and pancreatic elastase.
Will check CRP.
Currently on clear liquid diet but advance as tolerated.
If stool studies negative, consider flexible sigmoidoscopy/colonoscopy to evaluate.
History of small intestinal bacterial overgrowth which could be contributing to the diarrhea but need to rule out the above first.
- Anemia, no evidence of overt bleeding as per patient.
Continue PPI for history of esophagitis in the past.
Elevated iron studies from oral iron supplementation.
Will monitor for any GI bleeding while in the hospital.
Will follow-up
-
-
Thank you for consultation and allowing me to participate in the patient's care. Please call the director television GI physician during the after hours with any questions or concerns.
[2024-10-11] MEDS: ProAmatine 2.5 MG PO ×2 (14:25→17:34)
[2024-10-11] MEDS: LR 1000 IV (17:35)
[2024-10-11 19:08] LABS: Hepatitis C Antibody Negative (Negative)
[2024-10-11] MEDS: AMBIEN 5 MG PO (20:48)
[2024-10-11 20:57] LABS: Hematocrit 26.2 % (37.0-47.0); Hemoglobin 8.9 g/dL (12.0-16.0)
[2024-10-12] VITALS (24 sets, daily range): BP systolic 89–126; BP diastolic 53–86; PULSE 72; BMI 17.4
[2024-10-12 06:34] LABS: % Basophils 0.4 % (0-2); % Eosinophils 3.3 % (0-6); % Immature Granulocytes 0.4 % (0-0.5); % Lymphocytes 23.4 % (20.5-51.1); % Monocytes 7.9 % (1.7-9.3); % Neutrophils 64.6 % (42.2-75.2); Absolute Eosinophils 0.2 10^3/uL (0-0.7); Absolute Lymphocytes 1.1 10^3/uL (1.2-3.4); Absolute Monocytes 0.4 10^3/uL (0.1-0.6); Hemoglobin 9.1 g/dL (12.0-16.0); Mean Corp Hgb Conc. 33.7 g/dL (33.0-37.0); Mean Corpuscular Hgb 31.1 pg (27.0-31.0); Mean Corpuscular Volume 92.2 fL (81.0-99.0); Mean Platelet Volume 11.4 fL (7.4-10.4); Nucleated Red Blood Cells % 0 %; Platelet Count 152 10^3/uL (130-400); Red Blood Cell Count 2.93 10^6/uL (4.20-5.40); Red Cell Dist. Width 17.5 % (11.5-14.5); White Blood Cell Count 4.6 10^3/uL (4.8-10.8)
[2024-10-12 07:00] LABS: ALT (SGPT) 29 U/L (0-35); AST (SGOT) 21 U/L (14-36); Albumin 3.2 g/dl (3.5-5.0); Alkaline Phosphatase 39 U/L (38-126); Blood Urea Nitrogen 9 mg/dl (7-17); Calcium 8.7 mg/dl (8.4-10.2); Carbon Dioxide 18 mmol/L (22-30); Chloride 119 mmol/L (98-107); Estimated Creatinine Clearance 60 ml/min; Glucose 85 mg/dl (70-99); HDL Cholesterol 48 mg/dl; LDL Cholesterol, Calculated 38 mg/dl; Magnesium 1.3 mg/dl (1.6-2.3); Phosphorus 2.6 mg/dl (2.5-4.5); Sodium 144 mmol/L (135-145); Total Bilirubin 0.6 mg/dl (0.2-1.3); Total Cholesterol 111 mg/dl (50-199); Total Protein 5.4 g/dl (6.3-8.2); Triglyceride 127 mg/dl (10-149); Very Low Density Lipoprotein 25 mg/dl (0-30); eGFR > 60.00
--- NOTE | 2024-10-12 07:51 | W.PN.HOSP.TC ---
Today's Communication/Plan
-
medically stable for downgrade to Tele
diet advanced to Low residue
oral vancomycin as per GI
PT/OT
cont midodrine w/ holding parameters
bicarb supplementation
Assessment / Plan
Assessment / Plan
Physical Exam
General: no acute distress, appears comfortable at this time. Appears cachectic
HEENT: NormoCephalic, Anicteric, PERRLA, No Ptosis
Respiratory: Clear to auscultation b/l; No Wheezes, Rales or Rhonchi
Cardiac: S1/S2 and Regular Rhythm; No Murmur, Rub, Gallop or Peripheral Edema
GI: Soft, Non Distended, Normal Bowel Sounds and No Hepatosplenomegaly
Musculoskeletal: No Clubbing, No Cyanosis and No Edema
Neuro: AOx3 conversant coherent
Psych: Calm
64F HTN HLD COPD former smoker CAD stent stills dz/scleroderma on cellcept here for evaluation anemia possible GIB hx watery dark diarrhea.
#Hypotensive shock due to blood loss anemia/hypovolemia
#Immunocompromised patient history scleroderma/stills dz on CellCept
#Hx HTN�benign
#Symptomatic blood loss anemia concern for GI bleed
#Chronic anemia
#Hx GERD/esophageal ulcerations
#Chronic Diarrhea
BP improved with IVF/blood transfusion
Continue IV LR 80 cc an hour
Hold home antihypertensives amlodipine 10 mg daily, HCTZ 12.5 mg daily, losartan 50 mg daily
cont home CellCept
ECHO appreciated normal systolic function no significant changed from prior study 05/22/2016
Midodrine 2.5 mg TID w/ holding parameters SBP>120
Levophed prn discontinued, has not needed
Black stool guaiac positive noted in ED
received 1PRBC hgb 7.0 with relatively good response noted 7.8
transfusion repeated 10/11/24, transfuse for goal Hgb>7.5 given concern active GI bleed
H&H remains stable since 2nd transfusion
iron studies appreciated anemia of chronic disease
B12 Folate noted non-deficient
baby aspirin resumed
Continue home vitamin B12 1000 mcg p.o. daily ferrous sulfate 325 mg daily
Continue IV Protonix 40 mg daily
Clear liquid diet advanced to low residue
GI consult appreciated patient started on oral vanc given persistent diarrhea with Cdiff antigen pos though toxin neg
Probiotic
#Metabolic acidosis due to diarrheal losses
significantly improved with IVF
scheduled PO bicarb supplementation for now.
monitor
#BROOKE secondary to diarrheal losses/Bactrim/ blood loss anemia/GI bleed/hypotension
Initial Cr 1.4 improved to 1.0
cont to monitor
#Stage II sacral ulcer
- Consult wound care
#Chronic diastolic heart failure
I/O, daily weights
no significant signs fluid overload noted at this time.
stable respiratory status on room air
Follows with [facility]
Check 2D echo
#CAD/ND status post PTCA with stent August 2010
#Takotsubo cardiomyopathy
#Status post : Successful PTCA of the small third diagonal and small very apical LAD.
#HLD
Hold aspirin for now,
statin on hold d/t underweight/cachexia, check lipid panel in AM
#COPD-no acute exacerbation
#Former smoker
- Home Breo Ellipta substituted with Symbicort while in hospital
-stable respiratory status on room air
#Anxiety/depression
-Continue BuSpar 15 mg p.o. twice daily,
-Continue clonazepam 1 mg p.o. twice daily hold for sedation
- Continue Remeron 30 mg at bedtime
#Insomnia
-Continue Ambien 5 mg at bedtime
#Severe protein malnutrition/cachexia BMI 16.7
- Consult dietary appreciated
#Right Wrist Pain suspect arthritis
Right Wrist X-Ray appreciated no acute abn's
Other PMH:
Pancreatitis hx
PT/OT appreciated Home services vs no needs
DVT prophylaxis
SCDs
Full code
Medically stable for downgrade to Tele
I spent a total of 50 minutes with the patient or on the floor. More than 50% of this time involved counseling and coordination of care.
Anticipated Discharge: 24 - 48 hours
Subjective/Interval History
-
Date of Service: October 12, 2024
Reported explosive watery diarrhea this morning. Patient otherwise reports feeling well, full of energy. BP notably improved.
Objective Data
-
Labs:
Laboratory Results
10/11/24 10/12/24 10/12/24
20:37 06:18 06:19
WBC 4.6 L
Hgb 8.9 L D 9.1 L
Hct 26.2 L 27.0 L
Plt Count 152 D
Sodium 144
Potassium 4.0 D
Chloride 119 H
Carbon Dioxide 18 L
BUN 9
Creatinine 0.7
Glucose 85
Calcium 8.7
Total Bilirubin 0.6
AST 21
ALT 29
Alkaline Phosphatase 39
Vital Signs:
Vital Signs
Temp Pulse Resp BP Pulse Ox
98.6 F 66 15 113/82 99
10/12/24 03:00 10/12/24 06:12 10/12/24 06:12 10/12/24 06:12 10/12/24 06:00
I&O
10/11/24 10/12/24 10/13/24
06:59 06:59 06:59
Intake Total 500 / 1300 3750 / 3750
Balance 500 / 1300 3750 / 3750
[2024-10-12] MEDS: SYMBICORT 80/4.5 MCG INHALER 2 PUFF INH ×2 (08:11→20:10)
[2024-10-12] MEDS: KLONOPIN 1 MG PO ×2 (08:47→21:10)
[2024-10-12] MEDS: KLOR-CON 20 MEQ PO (08:47)
[2024-10-12] MEDS: ASPIR LOW (ENTERIC COATED) 81 MG PO (08:47)
[2024-10-12] MEDS: ProAmatine 2.5 MG PO ×3 (08:47→17:29)
[2024-10-12] MEDS: FEOSOL 325 MG PO (08:47)
[2024-10-12] MEDS: VITAMIN B-12 1000 MCG PO (08:47)
[2024-10-12] MEDS: BUSPAR 15 MG PO ×2 (08:47→21:10)
[2024-10-12] MEDS: CELLCEPT 1000 MG PO ×2 (08:47→21:10)
[2024-10-12] MEDS: PROTONIX IV 40 MG IV (08:48)
[2024-10-12] MEDS: VISBIOME 2 CAP PO (08:48)
[2024-10-12] MEDS: LR IV (08:49)
--- NOTE | 2024-10-12 09:26 | W.PN.GI.CBS2 ---
Today's Communication / Plan
-
Recommend oral vancomycin
Observe stool output
Adv to low residue diet
Assessment / Plan
-
64-year-old female with multiple medical problems including CAD, stills disease/scleroderma, CHF, COPD, chronic anemia with previous history of esophagitis, maintained on PPI and history of diarrhea with some right-sided colon inflammation on
colonoscopy in 2019 presenting with dizziness, diarrhea, noted to have anemia and GI consult called in.
Impression
- Diarrhea
- Recent abx use x2
- Remote h/o SIBO
- Electrolyte changes
hyponatremia, hypomagnesemia and metabolic acidosis
- H/o nonspecific colitis on R colon on C-scope 2018
- Scleroderma
- Anemia
- CHF
- COPD
- CAD
Recommendations
- Cdiff toxin neg but antigen + She declines prior diagnosis or treatment
- In setting post 2 courses of abx recommend empiric treatment with vancomycin
- Adv to low residue diet
- Monitor stool output. If does not improve in next 24-48hrs with oral vacomycin consider colonoscopy inpatient basis
Will follow with you.
Subjective
Subjective
Date of Service: October 12, 2024
BM this AM green and still loose. She is able to get to commode. Denies abd pain. Tolerating diet.
Objective
Data Reviewed
Laboratory Data:
Laboratory Results
10/12/24 06:19
10/12/24 06:18
Laboratory Results
PT 14.3 Sec (11.4-14.6) 10/10/24 16:43
INR 1.08 10/10/24 16:43
APTT 25.1 Sec (23.4-35.0) 10/10/24 16:43
Phosphorus 2.6 mg/dl (2.5-4.5) 10/12/24 06:18
Magnesium 1.3 mg/dl (1.6-2.3) L 10/12/24 06:18
Total Bilirubin 0.6 mg/dl (0.2-1.3) 10/12/24 06:18
AST 21 U/L (14-36) 10/12/24 06:18
ALT 29 U/L (0-35) 10/12/24 06:18
Alkaline Phosphatase 39 U/L (38-126) 10/12/24 06:18
Vital Signs and I&O:
Vital Signs
Temp Pulse Resp BP Pulse Ox
98.6 F 69 14 106/86 97
10/12/24 03:00 10/12/24 09:00 10/12/24 09:00 10/12/24 09:00 10/12/24 08:10
I&O
10/11/24 10/12/24 10/13/24
06:59 06:59 06:59
Intake Total 500 / 1300 3750 / 3750
Balance 500 / 1300 3750 / 3750
Physical Exam
Physical Exam
GEN: No acute distress, conversant, pleasant thin chronically ill appearing
HEENT: anicteric, extraocular movements intact, clear oropharynx without exudates
GI: soft, non-distended, not tender to palpation, normal active bowel sounds, no hepatosplenomegaly
EXT: warm, well perfused, traceedema bilaterally
NEURO: AAOx3, non-focal
[2024-10-12] MEDS: MAGNESIUM SULFATE 100 IV (10:15)
[2024-10-12] MEDS: ULTRAM 25 MG PO ×2 (11:18→23:49)
--- NOTE | 2024-10-12 11:32 | STATUS ---
SITUATION:
C/o right sided chest pain, right wrist pain 8/10 sharp.
BACKGROUND:
Anemia improving, anxiety, just downgraded to telemetry level of care
ASSESSMENT:
Very anxious/ non- stop fast talking 'I'm not doing this because I'm downgraded' BP 115/73 63-11 EKG completed and relayed to Dr. Benavidez
RECOMMENDATION:
Troponin drawn and sent, Ultram given for pain, calm emotional support provided- shes eating her breakfast - will send for wrist xray.
[2024-10-12 11:42] LABS: Troponin I < 0.012 ng/ml
[2024-10-12] MEDS: FIRVANQ 125 MG PO ×3 (11:50→23:17)
--- NOTE | 2024-10-12 13:30 | WOUNDNOTE ---
[facility] RN note: Patient admitted with Acute renal failure.
See H&P for complete history.
PMH: ED Past Medical History: Arrthythmia (SVT, paroxysmal atrial fibrillation), CAD, CHF (Diastolic heart failure), COPD, GERD, HTN, Hypercholesterolemia, [place] (August 2010), Other and Other (Still's disease/scleroderma, Pancreatitis, Esophageal
Ulcerations)
ED Past Surgical History: Cardiac (PTCA with stent times 08/2010) and Other
Wound Location and type/assessment: Patient admitted with: Sacral PI stage 3, [place] with scant pink. Patient is very thin in appearance, states she eats allot of protein in her diet. Patient states she had a Pilonidal Cyst removed when she was a
teenager. Patient able to turn self in bed. Heels are intact.
Appetite: Good reports patient. Encouraged protein in diet.
Pressure redistribution devices in place: On Air mattress, turns self. Air chair cushion in use, patient made aware can take upon discharge.
Plan: honey gel, adaptic and silicone foam daily. Nurse Zimmer called [facility] for honey gel and will apply when arrives. Teaching done with patient on wound care, states she understands.
Will confirm orders with hospitalist and updated nurse. Updated care plan and will follow as needed.
Note to case management of equipment requested for discharge: Patient states she can do dressing by self.
Recommend follow up at wound care center upon discharge.
--- NOTE | 2024-10-12 14:30 | PTCARENOTE ---
Post pain eval she states chest pain/ wrist pain is completely gone post ultram. Still c/o sacral ulcer pain when sitting on it. OOB freq to [facility] [place] small spurts of dark loose stools. Started low residue diet today. Mag rider completed as
ordered. Midline capped.
--- NOTE | 2024-10-12 16:09 | PTCARENOTE ---
Report to Zoe, transferred to [facility] with belongings.
[2024-10-12] MEDS: AMBIEN 5 MG PO (21:10)
[2024-10-12] MEDS: SODIUM BICARBONATE 650 MG PO (21:10)
[2024-10-12] MEDS: ESTRACE 0.01% VAGINAL CREAM 1 APPLIC VAG (21:11)
[2024-10-13] VITALS (7 sets, daily range): BP systolic 111–135; BP diastolic 62–79; BMI 17.4
[2024-10-13 05:03] LABS: % Basophils 0.5 % (0-2); % Eosinophils 3.2 % (0-6); % Immature Granulocytes 0.3 % (0-0.5); % Lymphocytes 14.3 % (20.5-51.1); % Monocytes 6.1 % (1.7-9.3); % Neutrophils 75.6 % (42.2-75.2); Absolute Eosinophils 0.2 10^3/uL (0-0.7); Absolute Lymphocytes 0.8 10^3/uL (1.2-3.4); Absolute Monocytes 0.4 10^3/uL (0.1-0.6); Absolute Neutrophils 4.4 10^3/uL (1.4-6.5); Hematocrit 26.9 % (37.0-47.0); Hemoglobin 8.6 g/dL (12.0-16.0); Mean Corpuscular Hgb 30.6 pg (27.0-31.0); Mean Corpuscular Volume 95.7 fL (81.0-99.0); Nucleated Red Blood Cells % 0 %; Platelet Count 137 10^3/uL (130-400); Red Blood Cell Count 2.81 10^6/uL (4.20-5.40); Red Cell Dist. Width 17.7 % (11.5-14.5); White Blood Cell Count 5.9 10^3/uL (4.8-10.8)
[2024-10-13 05:22] LABS: ALT (SGPT) 24 U/L (0-35); AST (SGOT) 18 U/L (14-36); Albumin 3.5 g/dl (3.5-5.0); Alkaline Phosphatase 53 U/L (38-126); Blood Urea Nitrogen 7 mg/dl (7-17); Calcium 8.6 mg/dl (8.4-10.2); Carbon Dioxide 21 mmol/L (22-30); Chloride 115 mmol/L (98-107); Estimated Creatinine Clearance 51 ml/min; Glucose 93 mg/dl (70-99); Magnesium 2.1 mg/dl (1.6-2.3); Phosphorus 2.3 mg/dl (2.5-4.5); Potassium 4.1 mmol/L (3.5-5.1); Sodium 141 mmol/L (135-145); Total Bilirubin 0.3 mg/dl (0.2-1.3); Total Protein 5.6 g/dl (6.3-8.2); eGFR > 60.00
[2024-10-13] MEDS: FIRVANQ 125 MG PO ×4 (06:01→23:00)
--- NOTE | 2024-10-13 07:05 | W.PN.HOSP.TC ---
Today's Communication/Plan
-
see a/p
Assessment / Plan
Assessment / Plan
Physical Exam
General: no acute distress, appears comfortable at this time. Appears cachectic
HEENT: NormoCephalic, Anicteric, PERRLA, No Ptosis
Respiratory: Clear to auscultation b/l; No Wheezes, Rales or Rhonchi
Cardiac: S1/S2 and Regular Rhythm; No Murmur, Rub, Gallop or Peripheral Edema
GI: Soft, Non Distended, Normal Bowel Sounds and No Hepatosplenomegaly
Musculoskeletal: No Clubbing, No Cyanosis and No Edema
Neuro: AOx3 conversant coherent
Psych: Calm
64F HTN HLD COPD former smoker CAD stent stills dz/scleroderma on cellcept here for evaluation anemia possible GIB hx watery dark diarrhea.
#Hypotensive shock due to blood loss anemia/hypovolemia
#Immunocompromised patient history scleroderma/stills dz on CellCept
#Hx HTN�benign
#Symptomatic blood loss anemia concern for GI bleed
#Chronic anemia exacerbated by acute blood loss
#Hx GERD/esophageal ulcerations
#Chronic Diarrhea
#Cdiff colitis
BP improved with IVF/blood transfusion
Continue IV LR 80 cc an hour
Hold home antihypertensives amlodipine 10 mg daily, HCTZ 12.5 mg daily, losartan 50 mg daily
cont home CellCept
ECHO appreciated normal systolic function no significant changed from prior study 05/22/2016
Midodrine 2.5 mg TID w/ holding parameters SBP>120
Levophed prn discontinued, has not needed
Black stool guaiac positive noted in ED
received 1PRBC hgb 7.0 with relatively good response noted 7.8
transfusion repeated 10/11/24, transfuse for goal Hgb>7.5 given concern active GI bleed
H&H remains stable since 2nd transfusion
iron studies appreciated anemia of chronic disease
B12 Folate noted non-deficient
baby aspirin resumed
Continue home vitamin B12 1000 mcg p.o. daily ferrous sulfate 325 mg daily
Continue IV Protonix 40 mg daily
Tolerating low residue
GI consult appreciated patient started on oral vanc given persistent diarrhea with Cdiff antigen pos though toxin neg
Probiotic
#Metabolic acidosis due to diarrheal losses
significantly improved with IVF
scheduled PO bicarb supplementation for now.
monitor
#mild hypophosphatemia
neutra-phos
#BROOKE secondary to diarrheal losses/Bactrim/ blood loss anemia/GI bleed/hypotension
Initial Cr 1.4 improved to 1.0
cont to monitor
#Stage III sacral ulcer POA
- Consult wound care appreciated
#Chronic diastolic heart failure
I/O, daily weights
no significant signs fluid overload noted at this time.
stable respiratory status on room air
Follows with [facility]
ECHO appreciated normal systolic function, no significant change since 05/2016
#CAD/[place] status post PTCA with stent August 2010
#Takotsubo cardiomyopathy
#Status post : Successful PTCA of the small third diagonal and small very apical LAD.
#HLD
ASA resumed
statin on hold d/t underweight/cachexia, lipid panel reviewed no need for statin at this time
#COPD-no acute exacerbation
#Former smoker
- Home Breo Ellipta substituted with Symbicort while in hospital
-stable respiratory status on room air
#Anxiety/depression
-Continue BuSpar 15 mg p.o. twice daily,
-Continue clonazepam 1 mg p.o. twice daily hold for sedation
- Continue Remeron 30 mg at bedtime
#Insomnia
-Continue Ambien 5 mg at bedtime
#Severe protein malnutrition/cachexia BMI 16.7
- Consult dietary appreciated
#Right Wrist Pain suspect arthritis
Right Wrist X-Ray appreciated no acute abn's
Other PMH:
Pancreatitis hx
PT/OT appreciated Home services vs no needs
DVT prophylaxis
SCDs
Full code
I spent a total of 45 minutes with the patient or on the floor. More than 50% of this time involved counseling and coordination of care.
Anticipated Discharge: Within 24 hours
Subjective/Interval History
-
Date of Service: October 13, 2024
Reports improvement in diarrhea, stools more formed.
Objective Data
-
Labs:
Laboratory Results
10/13/24
04:43
WBC 5.9
Hgb 8.6 L
Hct 26.9 L
Plt Count 137
Sodium 141
Potassium 4.1
Chloride 115 H
Carbon Dioxide 21 L
BUN 7
Creatinine 0.8
Glucose 93
Calcium 8.6
Total Bilirubin 0.3
AST 18
ALT 24
Alkaline Phosphatase 53
Vital Signs:
Vital Signs
Temp Pulse Resp BP Pulse Ox
97.6 F 83 16 120/77 99
10/13/24 03:32 10/13/24 03:32 10/13/24 03:32 10/13/24 03:32 10/13/24 03:32
I&O
10/12/24 10/13/24 10/14/24
06:59 06:59 06:59
Intake Total 3750 / 3750 240 / 240
Balance 3750 / 3750 240 / 240
[2024-10-13] MEDS: ProAmatine 2.5 MG PO ×3 (08:17→18:09)
[2024-10-13] MEDS: VITAMIN B-12 1000 MCG PO (08:17)
[2024-10-13] MEDS: FEOSOL 325 MG PO (08:17)
[2024-10-13] MEDS: CELLCEPT 1000 MG PO ×2 (08:17→21:42)
[2024-10-13] MEDS: KLOR-CON 20 MEQ PO (08:17)
[2024-10-13] MEDS: VISBIOME 2 CAP PO (08:17)
[2024-10-13] MEDS: SYMBICORT 80/4.5 MCG INHALER 2 PUFF INH (08:18)
[2024-10-13] MEDS: PROTONIX IV 40 MG IV (08:18)
[2024-10-13] MEDS: ASPIR LOW (ENTERIC COATED) 81 MG PO (08:18)
[2024-10-13] MEDS: KLONOPIN 1 MG PO ×2 (08:18→21:43)
[2024-10-13] MEDS: BUSPAR 15 MG PO ×2 (08:18→21:43)
[2024-10-13] MEDS: SODIUM BICARBONATE 650 MG PO ×3 (08:18→21:43)
[2024-10-13] MEDS: VITAMIN D3 (cholecalciferol) 25 MCG PO (08:18)
[2024-10-13] MEDS: VITAMIN C 500 MG PO (08:18)
[2024-10-13] MEDS: NEUTRA-PHOS POWDER PACKET 250 MG PO ×4 (08:20→21:43)
--- NOTE | 2024-10-13 10:16 | PN.CDI ---
CDI
- -
CDI:
Physician Documentation Request
Admit Date: 10/10/24 19:16
Dear Doctor Pramod,
Please review the following and provide your response in the progress notes.
Clinical Indicators:
- 10/12 PN 'Hypotensive shock due to blood loss anemia'
- 'Symptomatic blood loss anemia concern for GI bleed'
- 'Chronic anemia'
- 2 units PRBC given
-
Laboratory Tests
10/10/24 10/11/24 10/13/24
16:43 20:37 04:43
Hgb 7.0 L 8.9 L D 8.6 L
Laboratory Tests
10/10/24
16:43
Iron 99
TIBC 180 L
% Saturation 55 H
Ferritin 640.0 H
Please clarify which of the following accurately represents the acuity of the blood loss anemia. Possible options might include:
Acute blood loss anemia
Acute on chronic blood loss anemia
Acute blood loss with chronic (specify type) anemia
Other (please specify)
Use of terms such as suspected, likely, concern for, or probable (associated with a specific diagnosis that is being evaluated, monitored, or treated as if it exists) are acceptable and can be coded in the inpatient setting, when documented at the
time of discharge.
Thank you,
Yuridia Russell RN
CDI Specialist
Please use your independent medical judgment in providing your response.
--- NOTE | 2024-10-13 10:22 | PN.CDI ---
CDI
- -
CDI:
Physician Documentation Request
Admit Date: 10/10/24 19:16
Dear Doctor Pramod,
Please review the following and provide your response in the progress notes.
Clinical Indicators:
- 10/12 Wound note indicates Stage 3 sacrum pressure injury, POA
- 10/12 PN indicates stage 2 sacral pressure ulcer
Please clarify the stage of the sacral pressure ulcer
Use of terms such as suspected, likely, concern for, or probable (associated with a specific diagnosis that is being evaluated, monitored, or treated as if it exists) are acceptable and can be coded in the inpatient setting, when documented at the
time of discharge.
Thank you,
Yuridia Russell RN
CDI Specialist
Please use your independent medical judgment in providing your response.
*Source: National Pressure Ulcer Advisory Panel (NPUAP)
[2024-10-13] MEDS: ULTRAM 25 MG PO (11:41)
[2024-10-13] MEDS: THERAGRAN 1 TABLET PO (15:00)
[2024-10-13] MEDS: MAGIC OR MIRACLE MOUTHWASH 5 ML PO ×3 (15:00→21:45)
--- NOTE | 2024-10-13 16:04 | DOWNTIME ---
There was a [employer] Client Indexer Downtime on 10/13/2024 from 1230 to 10/13/2024 at 1550. Downtime documentation of patient's care, including medication administrations, has been reconciled in the electronic record per guidelines. Refer to the
patient's paper chart under the miscellaneous tab to see printed paper medication records and downtime forms.
--- NOTE | 2024-10-13 16:25 | W.PN.GI.CBS2 ---
Today's Communication / Plan
-
C/w oral vacomycin
Observe stool output
Assessment / Plan
-
64-year-old female with multiple medical problems including CAD, stills disease/scleroderma, CHF, COPD, chronic anemia with previous history of esophagitis, maintained on PPI and history of diarrhea with some right-sided colon inflammation on
colonoscopy in 2019 presenting with dizziness, diarrhea, noted to have anemia and GI consult called in.
Impression
- Diarrhea
- Recent abx use x2
- Remote h/o SIBO
- Electrolyte changes
hyponatremia, hypomagnesemia and metabolic acidosis
- H/o nonspecific colitis on R colon on C-scope 2019
- Scleroderma
- Anemia
- CHF
- COPD
- CAD
Recommendations
- Cdiff toxin neg but antigen + She declines prior diagnosis or treatment
- In setting post 2 courses of abx recommend empiric treatment of Cdiff with vancomycin
- Tolerating low residue diet
- Monitor stool output. Thus far more firm today
- If continues to do well anticipate d/c tomorrow. Would benefit form OP colonoscopy in 6-8wks given she is already overdue for screening
Will follow with you.
Subjective
Subjective
Date of Service: October 13, 2024
Denies abd pain tolerating diet. No nausea/vomiting. States one loose BM yesterday. Per RN today more firm
Objective
Data Reviewed
Laboratory Data:
Laboratory Results
10/13/24 04:43
10/13/24 04:43
Laboratory Results
PT 14.3 Sec (11.4-14.6) 10/10/24 16:43
INR 1.08 10/10/24 16:43
APTT 25.1 Sec (23.4-35.0) 10/10/24 16:43
Phosphorus 2.3 mg/dl (2.5-4.5) L 10/13/24 04:43
Magnesium 2.1 mg/dl (1.6-2.3) 10/13/24 04:43
Total Bilirubin 0.3 mg/dl (0.2-1.3) 10/13/24 04:43
AST 18 U/L (14-36) 10/13/24 04:43
ALT 24 U/L (0-35) 10/13/24 04:43
Alkaline Phosphatase 53 U/L (38-126) 10/13/24 04:43
Vital Signs and I&O:
Vital Signs
Temp Pulse Resp BP Pulse Ox
98.1 F 69 16 112/64 100
10/13/24 08:22 10/13/24 15:00 10/13/24 08:22 10/13/24 15:00 10/13/24 08:22
I&O
10/12/24 10/13/24 10/14/24
06:59 06:59 06:59
Intake Total 3750 / 3750 240 / 240
Balance 3750 / 3750 240 / 240
Physical Exam
Physical Exam
GEN: No acute distress, conversant, cachexia
HEENT: anicteric, extraocular movements intact, clear oropharynx without exudates
GI: soft, non-distended, not tender to palpation, normal active bowel sounds, no hepatosplenomegaly
EXT: warm, well perfused, trace edema bilaterally
NEURO: AAOx3, non-focal
--- NOTE | 2024-10-13 16:58 | CM ---
Spoke with pt in room .
PT indicated VN .Offered VN patient declined need.
Pt said she will call an Uber at discharge.
PLAN Home declined needs.
[2024-10-13] MEDS: SYMBICORT 80/4.5 MCG INHALER INH (20:12)
[2024-10-13] MEDS: AMBIEN 5 MG PO (21:43)
[2024-10-13] MEDS: REMERON 30 MG PO (23:39)
[2024-10-13] MEDS: MELATONIN 3 MG PO (23:40)
[2024-10-14 05:03] LABS: % Basophils 0.6 % (0-2); % Eosinophils 5.5 % (0-6); % Immature Granulocytes 0.2 % (0-0.5); % Lymphocytes 19.3 % (20.5-51.1); % Monocytes 7.2 % (1.7-9.3); % Neutrophils 67.2 % (42.2-75.2); Absolute Eosinophils 0.3 10^3/uL (0-0.7); Absolute Lymphocytes 0.9 10^3/uL (1.2-3.4); Absolute Monocytes 0.3 10^3/uL (0.1-0.6); Absolute Neutrophils 3.2 10^3/uL (1.4-6.5); Hematocrit 26.4 % (37.0-47.0); Hemoglobin 8.2 g/dL (12.0-16.0); Mean Corp Hgb Conc. 31.1 g/dL (33.0-37.0); Mean Corpuscular Hgb 30.4 pg (27.0-31.0); Mean Corpuscular Volume 97.8 fL (81.0-99.0); Mean Platelet Volume 10.4 fL (7.4-10.4); Nucleated Red Blood Cells % 0 %; Platelet Count 122 10^3/uL (130-400); Red Cell Dist. Width 17.1 % (11.5-14.5); White Blood Cell Count 4.7 10^3/uL (4.8-10.8)
[2024-10-14 05:28] LABS: ALT (SGPT) 18 U/L (0-35); AST (SGOT) 15 U/L (14-36); Albumin 3.1 g/dl (3.5-5.0); Alkaline Phosphatase 47 U/L (38-126); Blood Urea Nitrogen 6 mg/dl (7-17); Calcium 8.2 mg/dl (8.4-10.2); Carbon Dioxide 22 mmol/L (22-30); Chloride 115 mmol/L (98-107); Estimated Creatinine Clearance 58 ml/min; Glucose 88 mg/dl (70-99); Magnesium 1.8 mg/dl (1.6-2.3); Phosphorus 3.5 mg/dl (2.5-4.5); Potassium 4.1 mmol/L (3.5-5.1); Sodium 141 mmol/L (135-145); Total Bilirubin 0.3 mg/dl (0.2-1.3); Total Protein 5.1 g/dl (6.3-8.2); eGFR > 60.00
[2024-10-14 06:00] VITALS: BMI 17.5
[2024-10-14] MEDS: FIRVANQ 125 MG PO ×2 (06:53→13:15)
[2024-10-14 07:00] VITALS: BP 118/74
--- NOTE | 2024-10-14 07:14 | W.PN.HOSP.TC ---
Today's Communication/Plan
-
discharge
Assessment / Plan
Assessment / Plan
Physical Exam
General: no acute distress, appears comfortable at this time. Appears cachectic
HEENT: NormoCephalic, Anicteric, PERRLA, No Ptosis, right eye stye
Respiratory: Clear to auscultation b/l; No Wheezes, Rales or Rhonchi
Cardiac: S1/S2 and Regular Rhythm; No Murmur, Rub, Gallop or Peripheral Edema
GI: Soft, Non Distended, Normal Bowel Sounds and No Hepatosplenomegaly
Musculoskeletal: No Clubbing, No Cyanosis and No Edema
Neuro: AOx3 conversant coherent
Psych: Calm
64F HTN HLD COPD former smoker CAD stent stills dz/scleroderma on cellcept here for evaluation anemia possible GIB hx watery dark diarrhea.
#Hypotensive shock due to blood loss anemia/hypovolemia
#Immunocompromised patient history scleroderma/stills dz on CellCept
#Hx HTN�benign
#Symptomatic blood loss anemia concern for GI bleed
#Chronic anemia exacerbated by acute blood loss
#Hx GERD/esophageal ulcerations
#Chronic Diarrhea
#Cdiff colitis
BP improved with IVF/blood transfusion
Continue IV LR 80 cc an hour
Hold home antihypertensives amlodipine 10 mg daily, HCTZ 12.5 mg daily, losartan 50 mg daily, bp well controlled without
cont home CellCept
ECHO appreciated normal systolic function no significant changed from prior study 05/22/2016
Midodrine 2.5 mg TID w/ holding parameters SBP>120
Levophed prn discontinued, has not needed
Black stool guaiac positive noted in ED
received 1PRBC hgb 7.0 with relatively good response noted 7.8
transfusion repeated 10/11/24, transfuse for goal Hgb>7.5 given concern active GI bleed
H&H remains stable since 2nd transfusion
iron studies appreciated anemia of chronic disease
B12 Folate noted non-deficient
baby aspirin resumed
Continue home vitamin B12 1000 mcg p.o. daily ferrous sulfate 325 mg daily
Continue IV Protonix 40 mg daily
Tolerating low residue
GI consult appreciated patient started on oral vanc given persistent diarrhea with Cdiff antigen pos though toxin neg
Probiotic
#Metabolic acidosis due to diarrheal losses
significantly improved with IVF
scheduled PO bicarb supplementation completed w/ resolution acidosis
#mild hypophosphatemia resolvd
neutra-phos completed
#BROOKE secondary to diarrheal losses/Bactrim/ blood loss anemia/GI bleed/hypotension
Initial Cr 1.4 improved to 1.0
cont to monitor
#Stage III sacral ulcer POA
- Consult wound care appreciated
#Chronic diastolic heart failure
I/O, daily weights
no significant signs fluid overload noted at this time.
stable respiratory status on room air
Follows with [facility]
ECHO appreciated normal systolic function, no significant change since 05/2016
#CAD/[place] status post PTCA with stent August 2010
#Takotsubo cardiomyopathy
#Status post : Successful PTCA of the small third diagonal and small very apical LAD.
#HLD
ASA resumed
statin on hold d/t underweight/cachexia, lipid panel reviewed no need for statin at this time
#COPD-no acute exacerbation
#Former smoker
- Home Breo Ellipta substituted with Symbicort while in hospital
-stable respiratory status on room air
#Anxiety/depression
-Continue BuSpar 15 mg p.o. twice daily,
-Continue clonazepam 1 mg p.o. twice daily hold for sedation
- Continue Remeron 30 mg at bedtime
#Insomnia
-Continue Ambien 5 mg at bedtime
#Severe protein malnutrition/cachexia BMI 16.7
- Consult dietary appreciated
#Right Wrist Pain suspect arthritis
Right Wrist X-Ray appreciated no acute abn's
#Right eye stye
warm compress
Other PMH:
Pancreatitis hx
PT/OT appreciated Home services vs no needs (patient refuses home services)
DVT prophylaxis
SCDs
Full code
Medically stable for discharge home with outpatient follow up recommendations
Total Time Preparing Discharge ___40____ minutes including examination of the patient, summary of the hospital stay, instructions for continuing care to all relevant caregivers; and preparation of discharge records, prescriptions, and referral
forms if necessary.
Anticipated Discharge: Today
Subjective/Interval History
-
Date of Service: October 14, 2024
reports feeling well. Denies new acute issues at this time. Bowel movements more formed. Eager to go home
Objective Data
-
Labs:
Laboratory Results
10/14/24
04:41
WBC 4.7 L
Hgb 8.2 L
Hct 26.4 L
Plt Count 122 L
Sodium 141
Potassium 4.1
Chloride 115 H
Carbon Dioxide 22
BUN 6 L
Creatinine 0.7
Glucose 88
Calcium 8.2 L
Total Bilirubin 0.3
AST 15
ALT 18
Alkaline Phosphatase 47
Vital Signs:
Vital Signs
Temp Pulse Resp BP Pulse Ox
97.8 F 72 16 135/79 98
10/13/24 23:46 10/13/24 23:46 10/13/24 23:46 10/13/24 23:46 10/13/24 23:46
I&O
10/13/24 10/14/24 10/15/24
06:59 06:59 06:59
Intake Total 240 / 240
Balance 240 / 240
[2024-10-14] MEDS: SYMBICORT 80/4.5 MCG INHALER 2 PUFF INH (08:02)
[2024-10-14] MEDS: CELLCEPT 1000 MG PO (08:30)
[2024-10-14] MEDS: KLONOPIN 1 MG PO (08:30)
[2024-10-14] MEDS: VITAMIN C 500 MG PO (08:30)
[2024-10-14] MEDS: VISBIOME 2 CAP PO (08:30)
[2024-10-14] MEDS: SODIUM BICARBONATE 650 MG PO (08:31)
[2024-10-14] MEDS: VITAMIN D3 (cholecalciferol) 25 MCG PO (08:31)
[2024-10-14] MEDS: BUSPAR 15 MG PO (08:31)
[2024-10-14] MEDS: THERAGRAN 1 TABLET PO (08:31)
[2024-10-14] MEDS: FEOSOL 325 MG PO (08:31)
[2024-10-14] MEDS: ASPIR LOW (ENTERIC COATED) 81 MG PO (08:31)
[2024-10-14] MEDS: VITAMIN B-12 1000 MCG PO (08:31)
[2024-10-14] MEDS: KLOR-CON 20 MEQ PO (08:31)
[2024-10-14] MEDS: PROTONIX IV 40 MG IV (08:32)
[2024-10-14] MEDS: MAGIC OR MIRACLE MOUTHWASH 5 ML PO ×2 (08:32→13:15)
[2024-10-14] MEDS: ProAmatine PO (08:33)
[2024-10-14] MEDS: NEUTRA-PHOS POWDER PACKET 250 MG PO (08:52)
[2024-10-14] MEDS: ULTRAM 25 MG PO (09:01)
--- NOTE | 2024-10-14 09:40 | CM ---
Chart reviewed and wrapper caser met with patient this am and plan is to home when stable, patient declined visiting nurses.
Plan; Home no needs.
[2024-10-14 10:15] VITALS: BP 125/69; PULSE 83
--- NOTE | 2024-10-14 11:09 | W.DCSUMMARY ---
Discharge Summary
Discharge Data
Date of Admission: 10/10/24
Date of Discharge: 10/14/24
-
Pending Results: No
Discharge Plan
-
Patient Disposition: Home (Routine Discharge)
Discharge Diagnosis/Procedures: Hypotensive shock possibly due to acute blood loss anemia vs hypovolemia secondary severe diarrhea
History Hypertension
Cdiff Colitis
Metabolic acidosis due to diarrheal losses (resolved)
Acute Kidney Injury Resolved
Stage III sacral pressure injury
Chronic diastolic heart failure
Coronary Artery Disease History Stent
COPD
Anxiety/depression
Insomnia
Severe protein malnutrition/cachexia
Arthritis
Condition: Fair
Diet: Low Residue
Activity: As tolerated
Driving Restrictions: Not until seen by your Dr
Bathing Restrictions: None
Blood Work: Repeat CBC and BMP with primary care provider in 1 week of discharge.
Activity Restrictions/Additional Instructions:
Wound Care Instructions
Sacrum: clean with soap and water, bead of honey gel, adaptic and dry dressing daily.
Air chair cushion when sitting-*Can take upon discharge
increase protein in diet.
Follow up at wound care center if does not heal, call for an appointment.
Follow up with primary care provider in 1 week of discharge and GI in 6-8 wks of discharge to outpatient colonoscopy
Tramadol prescribed as needed for moderate severe pain.
Oral Vancomycin prescribed for Cdiff colitis. 10/22/24 last day oral vancomcyin treatment for Cdiff.
Blood pressure medications amlodipine, losartan, and hydrochlorothiazide have been placed on hold due to low pressures. These medications were consistently no needed during stay to control pressures. Please keep a daily log of your pressures at
home and review log with primary care provider in follow up to determine when safe to resume aforementioned meds, if necessary to resume, and/or if an alternative agent is required instead.
Lipitor has been discontinued, with low weight and LDL 38, there is no clear benefit at this time.
Please take medications as prescribed/recommended and follow up with primary care provider and/or other healthcare provider involved in your care for refills and/or further adjustment to your medication regimen as necessary.
Instructions: C. difficile infection, C. difficile infection - ED discharge instructions
Referrals:
Rory Black DO [Family Provider] - in one week
Shagufta Whitfield MD [Active, Gastroenterology] - in six weeks
Prescriptions:
New
vancomycin 50 mg/mL Recon Soln
125 mg PO Q6 Qty: 150 0RF
Rx Instructions:
10/22/24 is your last day for oral vancomycin treatment.
tramadol 50 mg Tablet
25 mg PO BIDPRN PRN (Reason: moderate severe pain) Qty: 10 0RF
Continued
mycophenolate mofetil 500 MG tablet
1,000 mg PO BID
ferrous sulfate [iron] 325 MG tablet
325 mg PO DAILY
zolpidem 5 MG tablet
5 mg PO HS
loperamide 2 mg Tablet
2 mg PO BIDPRN PRN (Reason: diarrhea)
cyanocobalamin (vitamin B-12) 1,000 mcg Tablet
1,000 mcg PO DAILY
ascorbic acid (vitamin C) [Vitamin C] 500 mg Tablet
500 mg PO DAILY
bismuth subsalicylate [Pepto-Bismol] 262 mg/15 mL Suspension
262 mg PO DAILYPRN PRN (Reason: diarrhea)
estradiol [Estrace] 0.01 % (0.1 mg/gram) Cream
1 appful VAGINAL TUFR
cholecalciferol (vitamin D3) [Vitamin D3] 25 mcg (1,000 unit) Tablet
25 mcg PO DAILY
omeprazole 20 mg Tablet,Delayed Release (Dr/Ec)
20 mg PO DAILY
fluticasone furoate-vilanterol [Breo Ellipta] 100-25 mcg/dose Blister With Device
1 inh INHALATION R DAILY
clonazepam 1 mg Tablet
1 mg PO BID
mirtazapine 30 mg Tablet
30 mg PO HS
buspirone 15 mg Tablet
15 mg PO BID
aspirin 81 mg Tablet,Delayed Release (Dr/Ec)
81 mg PO DAILY
Held
losartan 50 MG tablet
50 mg PO DAILY
Hold Instructions: Follow up with primary care provider to determine when safe to resume, if necessary to resume, and/or if an alternative agent is required instead.
amlodipine 10 MG tablet
10 mg PO DAILY
Hold Instructions: Follow up with primary care provider to determine when safe to resume, if necessary to resume, and/or if an alternative agent is required instead.
hydrochlorothiazide 12.5 MG capsule
12.5 mg PO DAILY
Hold Instructions: Follow up with primary care provider to determine when safe to resume, if necessary to resume, and/or if an alternative agent is required instead.
Discontinued
atorvastatin 10 MG tablet
10 mg PO QPM
Discharge Orders:
Discharge Patient (As Directed); Ordered 10/14/24
Ordered By: Candy Benavidez
Discharge Date and Time
Print Language: SUDANESE
[2024-10-14 13:14] VITALS: BP 108/61
[2024-10-14] MEDS: NEUTRA-PHOS POWDER PACKET PO ×2 (13:15→14:53)
[2024-10-14] MEDS: ProAmatine 2.5 MG PO (13:15)
--- NOTE | 2024-10-14 14:29 | W.PN.GI.CBS2 ---
Today's Communication / Plan
-
Complete 10 days of oral vancomycin
Ok for hosp d/c today from GI perspective
OP colonoscopy
Assessment / Plan
-
64-year-old female with multiple medical problems including CAD, stills disease/scleroderma, CHF, COPD, chronic anemia with previous history of esophagitis, maintained on PPI and history of diarrhea with some right-sided colon inflammation on
colonoscopy in 2019 presenting with dizziness, diarrhea, noted to have anemia and GI consult called in.
Impression
- Diarrhea
- Recent abx use x2
- Remote h/o SIBO
- Electrolyte changes
hyponatremia, hypomagnesemia and metabolic acidosis
- H/o nonspecific colitis on R colon on C-scope 2018
- Scleroderma
- Anemia
- CHF
- COPD
- CAD
Recommendations
- Diarrhea resolved on oral vancomycin to complete 10 day course
- Start probiotic afterwards.
- Tolerating low residue diet
- Monitor stool output. Thus far more firm today
- Would benefit form OP colonoscopy in 6-8wks given she is already overdue for screening. Will call my office to set up
Ok from GI perspective for hosp d/c today. Will sign off please call for questions
Subjective
Subjective
Date of Service: October 14, 2024
Her stool today is formed. She is tolerating diet without abd pain, nausea/vomiting
Objective
Data Reviewed
Laboratory Data:
Laboratory Results
10/14/24 04:41
10/14/24 04:41
Laboratory Results
PT 14.3 Sec (11.4-14.6) 10/10/24 16:43
INR 1.08 10/10/24 16:43
APTT 25.1 Sec (23.4-35.0) 10/10/24 16:43
Phosphorus 3.5 mg/dl (2.5-4.5) 10/14/24 04:41
Magnesium 1.8 mg/dl (1.6-2.3) 10/14/24 04:41
Total Bilirubin 0.3 mg/dl (0.2-1.3) 10/14/24 04:41
AST 15 U/L (14-36) 10/14/24 04:41
ALT 18 U/L (0-35) 10/14/24 04:41
Alkaline Phosphatase 47 U/L (38-126) 10/14/24 04:41
Vital Signs and I&O:
Vital Signs
Temp Pulse Resp BP Pulse Ox
97.8 F 70 17 108/61 100
10/14/24 13:14 10/14/24 13:15 10/14/24 13:14 10/14/24 13:15 10/14/24 13:14
I&O
10/13/24 10/14/24 10/15/24
06:59 06:59 06:59
Intake Total 240 / 240 480 / 480
Balance 240 / 240 480 / 480
Physical Exam
Physical Exam
GEN: No acute distress, conversant, cachexia
HEENT: anicteric, extraocular movements intact, clear oropharynx without exudates
CV: normal S1/S2, no murmur, rub or gallop
RESP: clear to auscultation bilaterally
GI: soft, non-distended, not tender to palpation, normal active bowel sounds, no hepatosplenomegaly
EXT: warm, well perfused, trace edema bilaterally
NEURO: AAOx3, non-focal
== END 2024-10-14 14:56 | disposition home or self-care (01) | DRG 682 ==
LOC: 4 WEST ACU 19:16
PROVIDERS: Clinical Nurse Specialist Family Health; ADMITTING PHYSICIAN Internal Medicine; ATTENDING PHYSICIAN Internal Medicine; CONSULT PHYSICIAN Internal Medicine Gastroenterology; EMERGENCY PHYSICIAN Emergency Medicine; FAMILY PHYSICIAN Family Medicine
PROC: 30233N1 Transfusion of Nonautologous Red Blood Cells into Peripheral Vein, Percutaneous Approach (ICD-10-PCS; 2024-10-10)
DX: N17.9 Acute kidney failure, unspecified (principal); E43 Unspecified severe protein-calorie malnutrition; L89.153 Pressure ulcer of sacral region, stage 3; R57.1 Hypovolemic shock; D62 Acute posthemorrhagic anemia; A04.72 Enterocolitis due to Clostridium difficile, not specified as recurrent; E87.20 Acidosis, unspecified; I50.32 Chronic diastolic (congestive) heart failure; R64 Cachexia; Z68.1 Body mass index [BMI] 19.9 or less, adult; D84.821 Immunodeficiency due to drugs; I51.81 Takotsubo syndrome; I45.2 Bifascicular block; K90.9 Intestinal malabsorption, unspecified; E87.1 Hypo-osmolality and hyponatremia; I11.0 Hypertensive heart disease with heart failure; I25.10 Atherosclerotic heart disease of native coronary artery without angina pectoris; J44.9 Chronic obstructive pulmonary disease, unspecified; F32.A Depression, unspecified; F41.9 Anxiety disorder, unspecified; G47.00 Insomnia, unspecified; E86.1 Hypovolemia; Z87.891 Personal history of nicotine dependence; M34.9 Systemic sclerosis, unspecified; E78.00 Pure hypercholesterolemia, unspecified; K21.00 Gastro-esophageal reflux disease with esophagitis, without bleeding; Z79.624 Long term (current) use of inhibitors of nucleotide synthesis; Z95.5 Presence of coronary angioplasty implant and graft; I25.2 Old myocardial infarction; Z87.19 Personal history of other diseases of the digestive system; Z79.82 Long term (current) use of aspirin; Z88.8 Allergy status to other drugs, medicaments and biological substances; Z87.440 Personal history of urinary (tract) infections; Z83.79 Family history of other diseases of the digestive system; Z79.899 Other long term (current) drug therapy; Z79.51 Long term (current) use of inhaled steroids; Z88.1 Allergy status to other antibiotic agents; E83.42 Hypomagnesemia; I48.0 Paroxysmal atrial fibrillation
CPT/HCPCS: 36430; 73100; 80053; 80061; 82607; 82728; 82746; 83540; 83550; 83735; 84100; 84484; 85014; 85018; 85025; 85610; 85730; 86140; 86803; 86850; 86900; 86901; 86920; 87045; 87046; 87324; 87328; 87329; 87427; 87449; 89055; 93005; 93306; 94640; 96360; 96361; 97116; 97162; 97167; 97530; 99291; P9016

== ENCOUNTER 2025-01-19 06:26 | Day surgery (SDC) | payer OTHER, SELFPAY | END 2025-01-19 11:10 | disposition home or self-care (01) | LOC: GI 06:26 | PROVIDERS: ATTENDING PHYSICIAN Internal Medicine Gastroenterology | DX: D64.9 Anemia, unspecified (principal); K64.8 Other hemorrhoids; K57.30 Diverticulosis of large intestine without perforation or abscess without bleeding; K63.89 Other specified diseases of intestine | CPT/HCPCS: 45380; 88305 ==